=== PATIENT | female | born 1940 | race Two or more races ===

== ENCOUNTER → 2016-11-09 | Outpatient (CLI) | payer OTHER | END | disposition home or self-care (01) | LOC: HKI 14:55 | PROVIDERS: ATTEND Orthopaedic Surgery | DX: M17.11 Unilateral primary osteoarthritis, right knee (principal); M25.561 Pain in right knee | CPT/HCPCS: G0463 ==

== ENCOUNTER → 2016-12-17 | Outpatient (CLI) | payer OTHER ==
[~2016-12-17] MED LIST: AMLO-147 PO; LOSA50TA6 PO
--- NOTE | 2016-12-17 22:16 | RADRPT ---
PROCEDURE: Right knee radiographs. CLINICAL INDICATION: Right knee pain. TECHNIQUE: Four views. Weight bearing. Frontal, lateral, oblique, and patellar view. COMPARISON: No prior studies are available for comparison. FINDINGS: There is no fracture or dislocation. The soft tissues are normal. There are degenerative changes with osteophytes arising from all 3 joint compartment margins. There is marked subchondral sclerosis and deformity of the lateral compartment. There is associated valgu s deformity. There is no lytic or blastic lesion. There is no radiopaque foreign body. IMPRESSION: 1. Severe degenerative change with deformity and valgus malformation of the right knee. RPTAT: QQ .Matthew Shrestha MD, MD Date Time Electronically viewed and signed by .Matthew Shrestha MD, MD on 12/17/2016 22:15 .R/
--- NOTE | 2016-12-17 22:17 | RADRPT ---
PROCEDURE: Limited x-ray of both lower extremities. CLINICAL INDICATION: Bilateral leg pain. TECHNIQUE: Single frontal view of both lower extremities was obtained from the hips to the calves. COMPARISON: None. FINDINGS: The hips are not well seen due to dense overlying soft tissues. There are severe degenerative changes of the right knee with deformity and valgus malformation. The re are severe degenerative changes of the left knee with medial and lateral joint compartment narrow ing and deformity. IMPRESSION: 1. Severe degenerative changes of both knees with right worse than left. RPTAT: QQ .Matthew Shrestha MD, MD Date Time Electronically viewed and signed by .Matthew Shrestha MD, MD on 12/17/2016 22:17 .R/
== END | disposition home or self-care (01) ==
LOC: HKI 10:24
PROVIDERS: ATTEND Orthopaedic Surgery
DX: M25.561 Pain in right knee (principal); M25.562 Pain in left knee; M21.061 Valgus deformity, not elsewhere classified, right knee
CPT/HCPCS: 73564; 77073; Z7500; G0463

== ENCOUNTER 2016-12-20 13:36 | Inpatient (IN) | payer OTHER ==
[2016-12-20] VITALS (35 sets, daily range): BP systolic 94–159; BP diastolic 61–86; PULSE 62–79; RESP 10–23; Ht 170.2 cm; Wt 81.4 kg
[~2016-12-20] VITALS: Ht 170.2 cm; Wt 81.4 kg
[2016-12-20] MEDS: traMADol 50 MG TAB PO SCH ×2 (12:00→18:00)
[2016-12-20] MEDS ORDERED: BACITRACIN 50000 UNITS INJ ONE (13:50)
[2016-12-20] MEDS ORDERED: CEFAZOLIN 1 GM INJ ONE (13:54)
[2016-12-20] MEDS ORDERED: FENTAnyl 50 MCG/ML VIAL ONE (13:54)
[2016-12-20] MEDS ORDERED: GLYCOPYRROLATE 0.4 MG INJ ONE (13:54)
[2016-12-20] MEDS ORDERED: NEOSTIGMINE 3 MG/3 ML SYRINGE ONE (13:54)
[2016-12-20] MEDS ORDERED: PROPOFOL 20 ML ONE (13:54)
[2016-12-20] MEDS ORDERED: MIDAZOLAM 1 MG/ML 2 ML INJ ONE (13:54)
[2016-12-20] MEDS ORDERED: ONDANSETRON 4 MG INJ ONE (13:54)
[2016-12-20] MEDS ORDERED: ROCURONIUM 50 MG INJ ONE (13:54)
[2016-12-20] MEDS ORDERED: DEXAMETHASONE 4 MG/ML 1 ML INJ ONE (13:55)
[2016-12-20] MEDS ORDERED: TRANEXAMIC ACID 800 MG in SOD CHLORIDE 0.9% 92 ML IV ONE (14:00)
[2016-12-20] MEDS ORDERED: ONDANSETRON 4 MG IV X 1 DOSE IV ONE (14:00)
[2016-12-20] MEDS ORDERED: PREGABALIN 300 MG PO X1 PO ONE (14:00)
[2016-12-20] MEDS ORDERED: EXPAREL NOTE (BUPIVICAINE LIPOSOMAL) XX SCH (14:00)
[2016-12-20] MEDS ORDERED: oxyCODONE (CR) 10 MG TAB [oxyCONTIN] X1 DOSE PO ONE (14:00)
[2016-12-20] MEDS ORDERED: traMADOL 50 MG TAB X 1 DOSE PO ONE (14:00)
[2016-12-20] MEDS: LACTATED RINGER'S 1,000 ML IV SCH ×2 (14:00→23:22)
[2016-12-20] MEDS ORDERED: TRANEXAMIC ACID 800 MG in SOD CHLORIDE 0.9% 100 ML IVPB ONE (14:00)
[2016-12-20] MEDS ORDERED: PAIN COCKTAIL-CEFUROXIME IRR ONE ×7 (14:00)
[2016-12-20] MEDS ORDERED: CEFAZOLIN 2GM/50 ML (PMX) 50 ML X1 BEFORE INCISION IVPB ONE (14:00)
[2016-12-20] MEDS ORDERED: CELECOXIB 400 MG PO X1 DOSE PO ONE (14:00)
[2016-12-20] MEDS ORDERED: BUPIVACAINE LIPOSOME/PF 266 MG/20 ML VIAL INFIL ONE (14:00)
[2016-12-20] MEDS ORDERED: ETOMIDATE 20 MG INJ ONE (14:21)
[2016-12-20] MEDS ORDERED: PROPOFOL 100 ML ONE (14:21)
[2016-12-20] MEDS ORDERED: AMLO-147 PO (14:39)
[2016-12-20] MEDS ORDERED: LOSA50TA6 PO (14:39)
[2016-12-20] MEDS ORDERED: POLYMYXIN B 500000 UNIT INJ ONE (15:23)
[2016-12-20] MEDS ORDERED: VANCOMYCIN 1 GM INJ ONE (15:23)
[2016-12-20] MEDS ORDERED: SODIUM CL BACTERIOSTATIC 30 ML INJ ONE (15:23)
[2016-12-20] MEDS ORDERED: TOBRAMYCIN 1.2 GM POWDER ONE (15:23)
--- NOTE | 2016-12-20 15:34 | HPN ---
Date/Time of Note Date/Time of Note DATE: 12/20/16 TIME: 15:32 Interval H&P Admission Note Pt. seen H&P reviewed: No system changes No changes from H&P on 12/11/16 by KANCHAN Velasquez MD Dec 20, 2016 15:34
[2016-12-20] MEDS ORDERED: HYDROmorphONE (0.2 MG/ML) 10ML SYG IV PRN ×3 (17:00)
[2016-12-20] MEDS ORDERED: TRIMETHOBENZAMIDE 100 MG/ML VIAL IM PRN (17:00)
[2016-12-20] MEDS ORDERED: MEPERIDINE 25 MG INJ IV PRN (17:00)
[2016-12-20] MEDS ORDERED: MIDAZOLAM 1 MG/ML 2 ML INJ IV PRN (17:00)
[2016-12-20] MEDS ORDERED: ONDANSETRON 4 MG INJ IV PRN ×2 (17:00→19:30)
[2016-12-20] MEDS ORDERED: DIPHENHYDRAMINE 50 MG INJ IV PRN (17:00)
[2016-12-20] MEDS ORDERED: hydrALAzine 20 MG INJ IV PRN (17:00)
[2016-12-20] MEDS ORDERED: IPRATROPIUM (NEB) 0.5 MG/2.5 ML AMP HHN PRN (17:00)
[2016-12-20] MEDS ORDERED: OXYCODONE/ACETAMINOPHEN (5/325) TAB PO PRN ×2 (17:00)
[2016-12-20] MEDS ORDERED: LABETALOL HCL 20MG INJ IV PRN (17:00)
[2016-12-20] MEDS ORDERED: FENTAnyl 50 MCG/ML VIAL IV PRN ×3 (17:00)
[2016-12-20] MEDS ORDERED: EPHEDrine SULFATE 50 MG/5 ML SYG IV PRN (17:00)
[2016-12-20] MEDS ORDERED: ALBUTEROL 0.083% (NEB) 2.5 MG/3 ML AMP HHN PRN (17:00)
[2016-12-20] MEDS ORDERED: SUGAMMADEX SODIUM 200 MG/2 ML VIAL IV ONE (18:41)
--- NOTE | 2016-12-20 19:19 | PN ---
Date/Time of Note Date/Time of Note DATE: 12/20/16 TIME: 19:18 Assessment/Plan Assessment/Plan Assessment/Plan Stable in PACU, s/p right TKA -continue Ancef x 3 days until drain removed -pain meds as needed -ASA/SCDs for DVT prophylaxis -OOB with PT -check AM labs -monitor drain -d/c franks in AM XR of the right knee is pending at this time Subjective 24 Hr Interval Summary Stable in PACU. Denies pain. Moving all extremities. Exam/Review of Systems Vital Signs Vitals Vital Signs Date Time Temp Pulse Resp B/P Pulse Ox O2 Delivery O2 Flow Rate FiO2 12/20/16 20:53 66 17 127/79 94 Nasal Cannula 2.0 12/20/16 19:29 97.5 Intake and Output 12/19/16 12/19/16 12/20/16 15:00 23:00 07:00 Output Total 800 ml Balance -800 ml Exam Free Text/Dictation Hemovac: minimal Dressing dry Incision clean, dry, and intact without redness or drainage Thigh soft 5/5 Quadriceps, Tibialis Anterior, EHL, Gastroc, Soleus, Peroneals Normal sensation Palpable DT/PT, CR <2 sec No distal edema Results Result Diagram: 12/20/16193912/20/161939 ESTEBAN KOWALSKI PA-C Dec 20, 2016 19:19
--- NOTE | 2016-12-20 19:20 | OPR ---
Date/Time of Note Date/Time of Note DATE: 12/20/16 TIME: 19:15 Operative Report Procedure Description DATE: 12/20/2016 PREOPERATIVE DIAGNOSIS: Right knee osteoarthritis POSTOPERATIVE DIAGNOSIS: Right knee osteoarthritis OPERATION PERFORMED: Right total knee arthroplasty. SURGEON: Kanchan Quintanilla MD CONSULTING ANALYST: Enrique Jerez PA-C COMPONENTS USED: DePuy size 3 TC 3 femur with a neutral 5 bolt, 14 mm diameter by 75 mm fluted stem, size 2.5 MBT revision tibial tray, 37 mm metaphyseal sleeve, 14 mm diameter by 75 mm fluted stem, 12.5 mm polyethylene insert, 32 patellar button ANESTHESIA: Spinal plus general endotracheal intubation, plus periarticular injection ANESTHESIOLOGIST: Beny Zamarripa M.D. TOURNIQUET TIME: 84 minutes. ESTIMATED BLOOD LOSS: 50 cc INTRAVENOUS FLUIDS: 2,000 cc crystalloid SPECIMENS: Bone and soft tissue. DRAINS: Hemovac x1. COMPLICATIONS: None. DISPOSITION: The patient tolerated the procedure well and was taken to the recovery room in stable condition. INDICATIONS: The patient is a 76-year-old woman who has developed severe osteoarthritis of the right knee with a severe valgus deformity. She has failed nonsurgical means of treatment to address her pain including activity modifications, pain medications, and ambulatory assist devices. Despite these measures she has had worsening pain. I felt the patient would benefit from a total knee arthroplasty. The risks, benefits, and alternatives of the procedure were explained in detail to the patient. I explained the risks of the surgery to include but not be limited to, bleeding and possible need for blood transfusion; infection; pain; stiffness; neurovascular injury with possible numbness, weakness, and/or paralysis anywhere from the knee down to the toes; fracture; instability; dislocation; wear and/or loosening of the prosthesis and possible need for future revision; blood clots; pulmonary embolism; and anesthetic complications such as heart attack, stroke, GI bleed, pneumonia, and/or . Ample time was allowed for the patient to ask questions, all of which were addressed and answered. The patient understood the risks involved and wished to proceed. Informed consent was signed prior to the procedure. PROCEDURE: The patient's right knee was initialed with a marking pen in the preoperative area to identify the correct operative site. The patient was brought to the operating room and transferred from the hospital gurney to the operating table where a spinal anesthetic was administered. The patient was then anesthetized and intubated. A Amin catheter was placed. A timeout was performed to confirm that the right leg was the correct operative site. The patient was given 2 g of Ancef within one hour prior to the procedure. A tourniquet was placed on the operative proximal thigh. The operative knee and lower extremity were prepped and draped in the usual sterile fashion. The operative lower extremity was elevated and exsanguinated with an Esmarch tourniquet. The proximal thigh tourniquet was inflated to 300 mmHg. The knee was flexed. A midline incision was made and carried down through the subcutaneous tissue and fat with sharp dissection. Limited medial and lateral flaps were raised. A median parapatellar approach was performed. Synovial fluid was normal in color and consistency. It was swabbed for aerobic and anaerobic culture 2 per the patella was everted and the knee flexed. There were severe tricompartmental osteoarthritic changes noted, with a significant defect along the lateral tibial plateau and lateral femoral condyle. A lateral release was performed at the joint line to the midcoronal plane using the inverted crucifix technique. The ACL and PCL and remnants of the menisci were excised. The stepped drill was used to open up the femoral canal which was irrigated and sucked dry. The intramedullary guide xiang was passed up the femur, and the distal cutting block was pinned into place for a 5 degree valgus cut, taking 10 mm of bone off distally. The oscillating saw was used to make the cut. The tibia was subluxed anteriorly. The tibial cutoff jig was placed over the center of the talus distally and over the junction of the medial and middle third of the tibial tubercle proximally. The guide was pinned into place and the oscillating saw was used to make the cut. The tibia was sized. The extension gap was checked and accommodated a 12.5 mm spacer block with the knee in full extension. There was no varus or valgus instability. At this point, the femur was sized with the posterior referencing guide. Two holes were drilled in 3 degrees of external rotation. The two holes were in line with the transepicondylar axis, perpendicular to Stockton's line, and in line with the tibial cutoff jig brought up with the knee flexed 90 degrees and tensed with 2 lamina spreaders, suggesting the femoral rotation was correct. The four-in-one cutting block was pinned into place. The anterior and posterior cuts and chamfer cuts were made with the oscillating saw. The flexion gap was checked and accommodated the 12.5 mm spacer block at 90 degrees. There was no varus or valgus instability, suggesting the flexion and extension gaps were now equal. The central box was cut out on the femur. The femur was reamed up to 14 mm. The tibia was broached and then drilled and punched in proper rotation. Trial components were placed into position with a trial insert. The patella was cut down to 13 mm and sized. Three holes were drilled and the trial button placed in position. With all the trials now in place, the knee was taken through range of motion and came to full extension as evidenced by the fact that with the foot on my abdomen and axial loading, there was no tendency for the knee to flex. The knee was able to be flexed to 125 degrees with good patellar tracking with no lateral tilt or subluxation. At this point, I was satisfied with the overall range of motion, stability, and patellar tracking. Intraoperative C- arm images showed the components to be well aligned in good position on AP and lateral views. The trials were removed. The real components were opened. Two bags of cement were mixed, one with and one without premixed antibiotic. The knee was irrigated with antibiotic saline and sucked dry. Once the cement was in a doughy stage, the real components were cemented into place. The knee was held in full extension, and the patellar component was held with a patellar clamp. All excess cement was removed with curettes. As the cement was hardening, the synovial/capsular layer was infiltrated with a mixture of 150 mg of 0.5% Bupivacaine, 8 mg of Duramorph, 300 mcg of epinephrine, 30 mg of Toradol, 100 mcg of clonidine, 750 mg of cefuroxime and 86 mL of normal saline, followed by an injection of 266 mg of liposomal Bupivacaine. A Hemovac drain was placed in the deep portion of the wound and brought out the anterolateral thigh. Once the cement was completely hardened, the trial liner was removed, and the real insert was opened. The tourniquet was let down, and there was good hemostasis. The knee was then irrigated with a mixture of betadine/saline and then antibiotic saline with pulsatile lavage. The real insert was impacted into the tibia and reduced onto to the femur. The arthrotomy was closed with a few interrupted #1 Ethibond in a figure-of- eight fashion, and then closed in a watertight fashion with a running #2 Stratafix suture. Knee flexion was checked against gravity and came to 125 degrees. The subcutaneous layer was irrigated and closed with 2-0 Statafix, and then 3-0 Vicryl and then levi on the skin. The wound was covered with an occlusive dressing, and secured with cast padding and a bias dressing. The drain was secured with 3-0 nylon. The sponge and needle counts were correct at the end of the case. The patient was then awakened, extubated, and taken to the recovery room in stable condition. KANCHAN QUINTANILLA MD Dec 20, 2016 19:20
[2016-12-20] MEDS ORDERED: NA PHOSPHATE/BIPHOS 133 ML ENEMA PR PRN (19:30)
[2016-12-20] MEDS ORDERED: HYDROCODONE/APAP (7.5/325) TAB PO PRN (19:30)
[2016-12-20] MEDS ORDERED: ASPIRIN (EC) 325 MG TAB PO ONE (19:30)
[2016-12-20] MEDS ORDERED: NACL 0.9% 3 ML SYG IV SCH (19:30)
[2016-12-20] MEDS ORDERED: HYDROmorphONE 1 MG/ML SYG IV PRN (19:30)
[2016-12-20] MEDS ORDERED: BISACODYL 10 MG SUPP PR PRN (19:30)
[2016-12-20] MEDS ORDERED: MAGNESIUM HYDROXIDE 30ML CUP PO PRN (19:30)
[2016-12-20] MEDS ORDERED: DIPHENHYDRAMINE 25 MG CAP PO PRN (19:30)
[2016-12-20 19:52] LABS: HEMATOCRIT 40.9 % (37.0-47.0); HEMOGLOBIN 12.2 g/dl (12.0-16.0)
[2016-12-20 20:13] LABS: CALCIUM 8.2 mg/dl (8.4-10.2); CREATININE 0.89 mg/dl (0.44-1.00); POTASSIUM 4.4 mmol/L (3.5-5.1)
--- NOTE | 2016-12-20 20:26 | RADRPT ---
PROCEDURE: XR Knee. CLINICAL INDICATION: 76-year-old female. Postop. TECHNIQUE: Three views of the right knee. COMPARISON: December 17, 2016 FINDINGS: Status post hinge variety total knee replacement with cemented components. Prosthesis has the expec johanny postoperative appearance with normal alignment. There is a drain in the anterior joint. Anteri or skin levi. Mild soft tissue swelling is within normal limits in the immediate postoperative pe riod. There is a bandage in place. IMPRESSION: Status post total knee replacement with the expected immediate postoperative appearance. RPTAT: HCTS Physician Darleen Date Time Electronically viewed and signed by Physician Darleen on 12/20/2016 20:26 CS/
--- NOTE | 2016-12-20 20:29 | RADRPT ---
PROCEDURE: XR Knee. CLINICAL INDICATION: Postop. TECHNIQUE: Three views of the right knee. COMPARISON: None available FINDINGS: There is a total knee replacement with the expected immediate postoperative appearance. There is a drain in the anterior joint and there are anterior skin levi. Normal alignment. Soft tissue swe lling is within normal limits in the immediate postoperative period. There is a binder in place. IMPRESSION: Total knee replacement with the expected immediate postoperative appearance. RPTAT: HCTS Physician Darleen Date Time Electronically viewed and signed by Physician Darleen on 12/20/2016 20:29 CS/
[2016-12-20] MEDS: PREGABALIN 50 MG CAP PO SCH (21:00)
[2016-12-20] MEDS: DOCUSATE SODIUM 100 MG CAP PO SCH (21:00)
[2016-12-20] MEDS: CEFAZOLIN 2 GM/50 ML (PMX) 50 ML IVPB SCH (22:16)
[2016-12-20] MEDS ORDERED: TRANEXAMIC ACID 810 MG in SOD CHLORIDE 0.9% 100 ML IVPB ONE (22:30)
--- NOTE | 2016-12-20 23:09 | CONS ---
Date/Time of Note Date/Time of Note DATE: 12/20/16 TIME: 23:08 Assessment/Plan Assessment/Plan Chief Complaint/Hosp Course This is a 76-year-old female being admitted to the [facility] floor for: #1 right knee total arthroplasty: Patient is status post surgery. At the current time we will continue management as per orthopedic recommendations. Pain management as per orthopedics. Advance diet as per orthopedics with eventual change to diabetic diet. #2 hypertension: We will continue monitor blood pressure at this time and resume home medications. #3 diabetes mellitus: We will check a hemoglobin A1c. We will hold all home medications at this time. Will put patient on insulin sliding scale. #4 glaucoma: Stable at this time patient is not complaining of any eye pain. At the current time she is not on any home medications. She was advised to follow-up as an outpatient with customer support associate. #5 DVT and GI prophylaxis: As per orthopedic recommendations Further treatment strategy will be implemented as per the clinical course, thank you for this consultation we will follow with you. Problems: Consultation Date/Type/Reason Admit Date/Time Dec 20, 2016 at 13:36 Date of Consultation: Dec 20, 2016 Reason for Consultation medical management Hx of Present Illness Chief complaint: Right knee pain This is a 76-year-old female who is status post elective right knee arthroplasty secondary to right knee osteoarthritis. She is POD #0. She is currently in the PACU. Patient has been dealing with her right knee osteoarthritis for quite some time now according to her son was also with her at the bedside. At the current time she appears to have tolerated the seizure well. She is easily arousable though she is somewhat somnolent as she just recently got out of the operating room. She is not in any pain. Allergies: NKDA Medications: See MAR Const: As per HPI Eyes : No pain discharge or redness or change in visual acuity ENT: No pain, sore throat, congestion, congestion, dysphagia or discharge Respiratory: No shortness of breath, cough, sputum, wheezing, or pleuritic pain Cardiovascular: No chest pain, palpitation, PND, or edema GI : no change in appetite, abdominal pain, nausea, vomiting, diarrhea, constipation, or change in the color his stool Genitourinary: No dysuria, hematuria, flank pain , discharge or CVA tenderness Musculoskeletal: As per HPI Skin: No rash, bruising or hives Neuro: No headache, dizziness, syncope, seizure, focal weakness Endocrine: No polyuria, polydipsia, temperature intolerance Psych: No hallucination, depression, anxiety or suicidal ideation Past Medical History HTN, DM, glaucoma, right knee osteoarthritis Past Surgical History s/p Right Knee replacement POD#0 Family History Significant Family History: hypertension Social History Alcohol Use: none Smoking Status: Never smoker Drug Use: none Exam/Review of Systems Vital Signs Vitals Vital Signs Date Time Temp Pulse Resp B/P Pulse Ox O2 Delivery O2 Flow Rate FiO2 12/20/16 21:53 62 18 108/71 96 Nasal Cannula 2.0 12/20/16 19:29 97.5 Intake and Output 12/19/16 12/19/16 12/20/16 15:00 23:00 07:00 Output Total 800 ml Balance -800 ml Exam General: Patient is lying in bed in no acute distress, she is somnolent but easily arousable. HEENT: Atraumatic, normocephalic. The pupils are equal, round and reactive. Extraocular motor are intact Neck: Supple with full range of motion. No rigidity or meningismus Chest: Nontender Lungs: Clear to auscultation bilaterally no crackles rales or wheezing Heart: Normal S1-S2, Regular rhythm and rate. No murmur, S3, or S4 Abdomen: Soft , nontender, nondistended , bowel sounds are present. No guarding no rebound tenderness , No masses or organomegaly. No costovertebral temporal angle mass Extremities: Normal to inspection, no edema no cyanosis, right knee exam was deferred secondary to her being postop. Right knee dressing clean dry and intact Neurologic: Normal mental status, speech normal, somnolent but easily arousable , cranial nerves II through XII are intact, motor and sensory are intact, no focal weakness Additional Comments PROCEDURE: XR Knee. CLINICAL INDICATION: 76-year-old female. Postop. TECHNIQUE: Three views of the right knee. COMPARISON: December 17, 2016 FINDINGS: Status post hinge variety total knee replacement with cemented components. Prosthesis has the expected postoperative appearance with normal alignment. There is a drain in the anterior joint. Anterior skin levi. Mild soft tissue swelling is within normal limits in the immediate postoperative period. There is a bandage in place. IMPRESSION: Status post total knee replacement with the expected immediate postoperative appearance. RPTAT: HCTS Physician Darleen Date Time Electronically viewed and signed by Ayesha Mccall Physician on 12/20/2016 20: 26 CS/ CC: ESTEBAN KOWALSKI PA-C Results Result Diagram: 12/20/16193912/20/161939 Results 24 hrs Laboratory Tests Test 12/20/16 19:40 12/20/16 20:00 Hemoglobin 12.2 Hematocrit 40.9 Sodium Level 142 Potassium Level 4.4 Chloride Level 105 Carbon Dioxide Level 25 Anion Gap 16 Blood Urea Nitrogen 20 Creatinine 0.89 Glucose Level 178 Calcium Level 8.2 L Bedside Glucose 160 Medications Medications Current Medications Lactated Ringer's (Lr) 1,000 ml @ 100 mls/hr Q10H IV ; Start 12/20/16 at 14:00 Miscellaneous Information 1 ea NOTE XX ; Start 12/20/16 at 14:00; Stop 12/24/16 at 13:59 Amlodipine Besylate (Norvasc) 10 mg DAILY PO ; Start 12/21/16 at 09:00 Losartan Potassium 50 mg 50 mg DAILY PO ; Start 12/21/16 at 09:00 Lactated Ringer's (Lr) 1,000 ml @ 125 mls/hr Q8H IV ; Start 12/20/16 at 19:13 Tramadol HCl (Ultram) 50 mg Q6 PO ; Start 12/20/16 at 12:00; Stop 12/23/16 at 11 :59 Hydromorphone HCl 1 mg 1 mg Q3H PRN IV PAIN LEVEL 8-10; Start 12/20/16 at 19:30 Cefazolin Sodium/ Dextrose (Ancef 2 Gm/50 ml (Pmx)) 50 ml @ 100 mls/hr Q8H IVPB Last administered on 12/20/16t 22:16; Admin Dose 100 MLS/HR; Start at 21:30; Stop 12/23/16 at 13:59 Ondansetron HCl (Zofran Inj) 4 mg Q6H PRN IV NAUSEA AND/OR VOMITING; Start 02/26 at 19:30 Bisacodyl (Dulcolax Supp) 10 mg Q12H PRN [place] CONSTIPATION; Start 12/20/16 at 19: 30 Magnesium Hydroxide (Milk Of Mag) 30 ml BID PRN PO CONSTIPATION; Start at 19:30 Sodium Biphosphate/ Sodium Phosphate (Fleet Enema) 133 ml DAILY PRN [place] CONSTIPATION; Start 12/20/16 at 19:30 Docusate Sodium (Colace) 100 mg BID PO ; Start 12/20/16 at 21:00 Diphenhydramine HCl (Benadryl) 25 mg Q6H PRN PO PRURITUS; Start 12/20/16 at 19: 30 Acetaminophen/ Hydrocodone Bitart (Kimball (7.5-325)) 1 tab Q4H PRN PO PAIN LEVEL 1-3; Start 12/20/16 at 19:30 Acetaminophen/ Hydrocodone Bitart (Kimball (7.5-325)) 2 tab Q4H PRN PO PAIN LEVEL 4-7; Start 12/20/16 at 19:30 Aspirin (Ecotrin) 325 mg BID PO ; Start 12/21/16 at 09:00 Pantoprazole (Protonix Tab) 40 mg BID@,18 PO ; Start 12/21/16 at 06:00 Pregabalin (Lyrica) 50 mg BID PO ; Start 12/20/16 at 21:00 SIA JOHANSEN Dec 20, 2016 23:09
[2016-12-20] MEDS ORDERED: GLUCAGON 1 MG INJ IM PRN (23:15)
[2016-12-20] MEDS ORDERED: GLUCOSE GEL 15 GRAM TUBE BUCCAL PRN (23:15)
[2016-12-20] MEDS ORDERED: GLUCOSE GEL 15 GRAM TUBE PO PRN ×2 (23:15)
[2016-12-20] MEDS ORDERED: DEXTROSE 50% 50 ML SYRINGE IV PRN ×2 (23:15)
[2016-12-21 00:30] VITALS: BP 138/95; RESP 20
[2016-12-21] MEDS ORDERED: TRANEXAMIC ACID 810 MG in SOD CHLORIDE 0.9% 100 ML IVPB ONE (01:30)
[2016-12-21] MEDS: ACCU-CHEK XX SCH (02:00)
[2016-12-21] MEDS ORDERED: ACCU-CHEK XX SCH (02:00)
[2016-12-21] MEDS: LACTATED RINGER'S 1,000 ML IV SCH ×8 (03:13→21:10)
[2016-12-21] MEDS: CEFAZOLIN 2 GM/50 ML (PMX) 50 ML IVPB SCH ×3 (05:53→21:10)
[2016-12-21] MEDS: PANTOPRAZOLE (EC) 40 MG TAB PO SCH ×2 (06:00→17:37)
[2016-12-21] MEDS: traMADol 50 MG TAB PO SCH ×4 (06:00→18:46)
[2016-12-21 06:03] LABS: HEMATOCRIT 41.2 % (37.0-47.0); HEMOGLOBIN 12.4 g/dl (12.0-16.0)
[2016-12-21 06:22] LABS: CALCIUM 8.4 mg/dl (8.4-10.2); CREATININE 0.87 mg/dl (0.44-1.00); POTASSIUM 5.8 mmol/L (3.5-5.1)
[2016-12-21] MEDS: INSULIN ASPART [NOVOLOG] 3 ML PEN SC SCH ×4 (07:50→21:00)
--- NOTE | 2016-12-21 08:00 | PDOCDIS ---
Discharge Instructions DIAGNOSIS Discharge Diagnosis s/p right total knee arthroplasty CONDITION Patient Condition: Good HOME CARE INSTRUCTIONS: Diet Instructions: Regular ACTIVITY: Activity Restrictions: Slowly Increase Activity Rest between Activity Avoid heavy lifting Do not operate Machinery Do not operate Power Tool Avoid Heavy Housework Keep Limb Elevated Weight Bearing Bathing Restrictions: Shower FOLLOW UP/APPOINTMENTS Follow-up Plan follow up in the office on 12/31/16 ESTEBAN KOWALSKI PA-C Dec 21, 2016 08:00
[2016-12-21] MEDS ORDERED: ASPI325T32 PO (08:01)
[2016-12-21] MEDS ORDERED: HYDR-3605 PO (08:01)
[2016-12-21] MEDS ORDERED: PANT40TA4 PO (08:01)
[2016-12-21] MEDS ORDERED: TRAM50TA2 PO (08:01)
[2016-12-21 08:35] VITALS: BP 113/57; RESP 18
[2016-12-21] MEDS: DOCUSATE SODIUM 100 MG CAP PO SCH ×2 (08:41→21:05)
[2016-12-21] MEDS: LOSARTAN 50 MG TAB PO SCH (08:42)
[2016-12-21] MEDS: ASPIRIN (EC) 325 MG TAB PO SCH ×2 (08:42→21:04)
[2016-12-21] MEDS: AMLODIPINE 10 MG TAB PO SCH (08:42)
[2016-12-21] MEDS: PREGABALIN 50 MG CAP PO SCH ×2 (08:42→21:05)
--- NOTE | 2016-12-21 10:14 | PN ---
Date/Time of Note Date/Time of Note DATE: 12/21/16 TIME: 10:12 Assessment/Plan Lines/Catheters Amin in Place (from Nrsg): Yes Assessment/Plan Assessment/Plan Stable POD #1, s/p right TKA -continue Ancef until final culture results -pain meds as needed -ASA/SCDs -OOB with PT -drain removed -check AM labs -d/c planning. Will plan to go home upon discharge Subjective 24 Hr Interval Summary No acute overnight events. Denies pain . Did not start PT yesterday. Cultures show no growth x 1 day. VSS, afebrile. Would like to go home upon discharge. Exam/Review of Systems Vital Signs Vitals Vital Signs Date Time Temp Pulse Resp B/P Pulse Ox O2 Delivery O2 Flow Rate FiO2 12/21/16 08:35 97.8 73 18 113/57 98 12/21/16 01:51 Nasal Cannula 2.0 Intake and Output 12/20/16 12/20/16 12/21/16 14:59 22:59 06:59 Intake Total 2500 ml 808.1 ml Output Total 150 ml 1000 ml Balance 2350 ml -191.9 ml Exam Free Text/Dictation Hemovac: 150cc Dressing dry Incision clean, dry, and intact without redness or drainage Thigh soft 5/5 Quadriceps, Tibialis Anterior, EHL, Gastroc, Soleus, Peroneals Normal sensation Palpable DT/PT, CR <2 sec No distal edema Results Result Diagram: 12/21/16 0435 12/21/16 0925 ESTEBAN KOWALSKI PA-C Dec 21, 2016 10:13
[2016-12-21] MEDS ORDERED: NA POLYST SULFON 15 GM/60 ML BTL PO ONE (12:00)
[2016-12-21 13:22] LABS: ADD UMIC YES; UR ASCORBIC ACID NEGATIVE (NEGATIVE); UR BILIRUBIN (Dip) NEGATIVE (NEGATIVE); UR BLOOD (Dip) 3+ mg/dL (NEGATIVE); UR CLARITY CLEAR (CLEAR); UR COLOR YELLOW (YELLOW); UR GLUCOSE (Dip) NEGATIVE (NEGATIVE); UR KETONES (Dip) NEGATIVE (NEGATIVE); UR LEUKOCYTE ESTERASE (Dip) 1+ Leu/ul (NEGATIVE); UR NITRITE (Dip) NEGATIVE (NEGATIVE); UR RBC 152 /HPF (0-5); UR SPECIFIC GRAVITY (Dip) 1.027 (1.003-1.030); UR TOTAL PROTEIN (Dip) NEGATIVE (NEGATIVE); UR UROBILINOGEN (Dip) NEGATIVE (NEGATIVE)
[2016-12-21 14:00] VITALS: BP 113/62; RESP 18
[2016-12-21] MEDS: HYDROCODONE/APAP (7.5/325) TAB PO PRN ×2 (16:37→21:10)
--- NOTE | 2016-12-21 17:52 | PN ---
Date/Time of Note Date/Time of Note DATE: 12/21/16 TIME: 17:50 Assessment/Plan VTE Prophylaxis VTE Prophylaxis Intervention: other (Per Orthopedic Surgery) Lines/Catheters IV Catheter Type (from Nrs): Peripheral IV Urinary Cath still in place: Yes Reason Cath still needed: other (indicate) Assessment/Plan Chief Complaint/Hosp Course 1. Right knee osteoarthritis. Status post right total knee arthroplasty on 02/2017. Continue management as per orthopedic surgery. 2. Essential hypertension. Continue antihypertensives. 3. Type 2 diabetes mellitus. Hemoglobin A1c 6.6. Continue sliding scale insulin. Sugars well controlled. 4. Hyperkalemia. Etiology unclear. Will hold the patient ARB. Will give a single dose of potassium exchange resin. 5. Fluids, electrolytes, and nutrition. Carbohydrate controlled diet. 6. DVT prophylaxis. As per orthopedic surgery. 7. Plan. Hold ARB. Give a single dose of Kayexalate. We will continue to follow the patient along with you. Thank you for the consult. Case discussed with Dr. Ford. Problems: Subjective 24 Hr Interval Summary Free Text/Dictation Right knee pain well controlled. Exam/Review of Systems Vital Signs Vitals Vital Signs Date Time Temp Pulse Resp B/P Pulse Ox O2 Delivery O2 Flow Rate FiO2 12/21/16 14:00 97.8 68 18 113/62 90 12/21/16 01:51 Nasal Cannula 2.0 Intake and Output 12/20/16 12/20/16 12/21/16 15:00 23:00 07:00 Intake Total 2500 ml 808.1 ml Output Total 150 ml 1000 ml Balance 2350 ml -191.9 ml Exam General: Adequately build 76 year-old female lying in bed in no apparent distress. HEENT: Normocephalic, atraumatic. Eyes: Anicteric sclerae, conjunctivae clear. ENT: Nasal septum midline, oral mucosa moist. Neck supple, no JVD noticed. Respiratory: Bilaterally clear breath sounds. No use of accessory muscles of respiration. No adventitious breath sounds. Cardiovascular: S1, S2 heard. No murmurs or gallops. Abdomen: Soft, nontender, and nondistended. Bowel sounds positive in all 4 quadrants. Genitourinary: Deferred. Extremities: No cyanosis, no clubbing. Right knee surgical dressing. Peripheral pulses palpable. Neurologic: Cranial nerves II through XII grossly intact. The patient is awake, alert, and oriented. Skin: Normal skin turgor. No skin rashes. Results Result Diagram: 12/21/16 0435 12/21/16 0925 Results 24 hrs Laboratory Tests Test 12/20/16 19:40 12/20/16 20:00 12/21/16 04:35 12/21/16 08:37 Hemoglobin 12.2 12.4 Hematocrit 40.9 41.2 Sodium Level 142 Potassium Level 4.4 Chloride Level 105 Carbon Dioxide Level 25 Anion Gap 16 Blood Urea Nitrogen 20 Creatinine 0.89 Glucose Level 178 Calcium Level 8.2 L Bedside Glucose 160 97 Hemoglobin A1c 6.6 H Test 12/21/16 09:25 12/21/16 09:50 12/21/16 12:03 12/21/16 17:20 Sodium Level 143 Potassium Level 5.8 H Chloride Level 103 Carbon Dioxide Level 27 Anion Gap 19 H Blood Urea Nitrogen 21 H Creatinine 0.87 Glucose Level 134 # Calcium Level 8.4 Urine Color YELLOW Urine Clarity CLEAR Urine pH 5.0 Urine Specific [place] 1.027 Urine Ketones NEGATIVE Urine Nitrite NEGATIVE Urine Bilirubin NEGATIVE Urine Urobilinogen NEGATIVE Urine Leukocyte Esterase 1+ H Urine Microscopic RBC 152 H Urine Microscopic WBC 6 H Urine Hemoglobin 3+ H Urine Glucose NEGATIVE Urine Total Protein NEGATIVE Bedside Glucose 125 123 Medications Medications Current Medications Lactated Ringer's (Lr) 1,000 ml @ 100 mls/hr Q10H IV ; Start 12/20/16 at 14:00 Miscellaneous Information 1 ea NOTE XX ; Start 12/20/16 at 14:00; Stop 12/24/16 at 13:59 Amlodipine Besylate (Norvasc) 10 mg DAILY PO Last administered on 12/21/16 08: 42; Admin Dose 10 MG; Start 12/21/16 at 09:00 Losartan Potassium 50 mg 50 mg DAILY PO Last administered on 12/21/16 08:42; Admin Dose 50 MG; Start 12/21/16 at 09:00; Status Future Hold Lactated Ringer's (Lr) 1,000 ml @ 125 mls/hr Q8H IV Last administered on 09:22; Admin Dose 125 MLS/HR; Start 12/20/16 at 19:13 Tramadol HCl (Ultram) 50 mg Q6 PO Last administered on 12/21/16 12:21; Admin Dose 50 MG; Start 12/20/16 at 12:00; Stop 12/23/16 at 11:59 Hydromorphone HCl 1 mg 1 mg Q3H PRN IV PAIN LEVEL 8-10; Start 12/20/16 at 19:30 Cefazolin Sodium/ Dextrose (Ancef 2 Gm/50 ml (Pmx)) 50 ml @ 100 mls/hr Q8H IVPB Last administered on 12/21/16 13:18; Admin Dose 100 MLS/HR; Start at 21:30; Stop 12/23/16 at 13:59 Ondansetron HCl (Zofran Inj) 4 mg Q6H PRN IV NAUSEA AND/OR VOMITING; Start 02/26 at 19:30 Bisacodyl (Dulcolax Supp) 10 mg Q12H PRN [place] CONSTIPATION; Start 12/20/16 at 19: 30 Magnesium Hydroxide (Milk Of Mag) 30 ml BID PRN PO CONSTIPATION; Start at 19:30 Sodium Biphosphate/ Sodium Phosphate (Fleet Enema) 133 ml DAILY PRN [place] CONSTIPATION; Start 12/20/16 at 19:30 Docusate Sodium (Colace) 100 mg BID PO Last administered on 12/21/16 08:41; Admin Dose 100 MG; Start 12/20/16 at 21:00 Diphenhydramine HCl (Benadryl) 25 mg Q6H PRN PO PRURITUS; Start 12/20/16 at 19: 30 Acetaminophen/ Hydrocodone Bitart ([place] (7.5-325)) 1 tab Q4H PRN PO PAIN LEVEL 1-3 Last administered on 12/21/16 16:37; Admin Dose 1 TAB; Start at 19:30 Acetaminophen/ Hydrocodone Bitart ([place] (7.5-325)) 2 tab Q4H PRN PO PAIN LEVEL 4-7; Start 12/20/16 at 19:30 Aspirin (Ecotrin) 325 mg BID PO Last administered on 12/21/16 08:42; Admin Dose 325 MG; Start 12/21/16 at 09:00 Pantoprazole (Protonix Tab) 40 mg BID@06,18 PO Last administered on 12/21/16 17:37; Admin Dose 40 MG; Start 12/21/16 at 06:00 Pregabalin (Lyrica) 50 mg BID PO Last administered on 12/21/16t 08:42; Admin Dose 50 MG; Start 12/20/16 at 21:00 Diagnostic Test (Pha) (Accu-Chek) 1 ea 02 XX ; Start 12/21/16 at 02:00 Miscellaneous Information 1 ea NOTE XX ; Start 12/20/16 at 23:15 Glucose (Glutose) 15 gm Q15M PRN PO DECREASED GLUCOSE; Start 12/20/16 at 23:15 Glucose (Glutose) 22.5 gm Q15M PRN PO DECREASED GLUCOSE; Start 12/20/16 at 23: 15 Dextrose (D50w Syringe) 25 ml Q15M PRN IV DECREASED GLUCOSE; Start 12/20/16 at 23:15 Dextrose (D50w Syringe) 50 ml Q15M PRN IV DECREASED GLUCOSE; Start 12/20/16 at 23:15 Glucagon (Glucagen) 1 mg Q15M PRN IM DECREASED GLUCOSE; Start 12/20/16 at 23:15 Glucose (Glutose) 15 gm Q15M PRN BUCCAL DECREASED GLUCOSE; Start 12/20/16 at 23 :15 BRYSON BAR NP Dec 21, 2016 17:52
[2016-12-21 19:20] VITALS: BP 111/53; RESP 20
[2016-12-22] MEDS: ACCU-CHEK XX SCH (00:17)
[2016-12-22 02:34] VITALS: BP 96/52; PULSE 86; RESP 17
[2016-12-22] MEDS: CEFAZOLIN 2 GM/50 ML (PMX) 50 ML IVPB SCH ×3 (05:51→20:50)
[2016-12-22] MEDS: LACTATED RINGER'S 1,000 ML IV SCH ×4 (05:52→19:13)
[2016-12-22] MEDS: traMADol 50 MG TAB PO SCH ×4 (05:52→18:30)
[2016-12-22] MEDS: PANTOPRAZOLE (EC) 40 MG TAB PO SCH ×2 (05:52→18:29)
[2016-12-22 05:55] LABS: HEMATOCRIT 33.8 % (37.0-47.0); HEMOGLOBIN 10.5 g/dl (12.0-16.0)
[2016-12-22 06:07] LABS: POTASSIUM 4.8 mmol/L (3.5-5.1)
[2016-12-22 07:00] VITALS: BP 107/58; RESP 18
[2016-12-22] MEDS: INSULIN ASPART [NOVOLOG] 3 ML PEN SC SCH ×4 (07:50→21:00)
--- NOTE | 2016-12-22 08:59 | PN ---
Date/Time of Note Date/Time of Note DATE: 12/22/16 TIME: 08:56 Assessment/Plan VTE Prophylaxis VTE Prophylaxis Intervention: other (Per orthopedic surgery.) Lines/Catheters IV Catheter Type (from Nrs): Peripheral IV Urinary Cath still in place: Yes Reason Cath still needed: other (indicate) Assessment/Plan Chief Complaint/Hosp Course 1. Right knee osteoarthritis. Status post right total knee arthroplasty on 02/2017. Continue management as per orthopedic surgery. 2. Essential hypertension. Continue antihypertensives. 3. Type 2 diabetes mellitus. Hemoglobin A1c 6.6. Continue sliding scale insulin. Sugars well controlled. 4. Hyperkalemia. Resolved a single dose of potassium exchange resin. ARB can be resumed as appropriate for hypertension. 5. Fluids, electrolytes, and nutrition. Carbohydrate controlled diet. 6. DVT prophylaxis. As per orthopedic surgery. 7. Plan. Resume ARB. Monitor potassium levels closely. We will continue to follow the patient along with you. Thank you for the consult. Case discussed with Dr. Ford. Problems: Subjective 24 Hr Interval Summary Free Text/Dictation Had a low-grade fever last night. Exam/Review of Systems Vital Signs Vitals Vital Signs Date Time Temp Pulse Resp B/P Pulse Ox O2 Delivery O2 Flow Rate FiO2 12/22/16 07:00 98.9 78 18 107/58 95 12/22/16 02:34 Nasal Cannula 12/21/16 01:51 2.0 Intake and Output 12/21/16 12/21/16 12/22/16 15:00 23:00 07:00 Intake Total 100 ml 2410 ml 2200 ml Output Total 550 ml 1000 ml Balance -450 ml 2410 ml 1200 ml Exam General: Adequately build 76 year-old female lying in bed in no apparent distress. HEENT: Normocephalic, atraumatic. Eyes: Anicteric sclerae, conjunctivae clear. ENT: Nasal septum midline, oral mucosa moist. Neck supple, no JVD noticed. Respiratory: Bilaterally clear breath sounds. No use of accessory muscles of respiration. No adventitious breath sounds. Cardiovascular: S1, S2 heard. No murmurs or gallops. Abdomen: Soft, nontender, and nondistended. Bowel sounds positive in all 4 quadrants. Genitourinary: Deferred. Extremities: No cyanosis, no clubbing. Right knee surgical dressing. Peripheral pulses palpable. Neurologic: Cranial nerves II through XII grossly intact. The patient is awake, alert, and oriented. Skin: Normal skin turgor. No skin rashes. Results Result Diagram: 12/22/16 0436 12/22/16 0436 Results 24 hrs Laboratory Tests Test 12/21/16 09:25 12/21/16 09:50 12/21/16 12:03 12/21/16 17:20 Sodium Level 143 Potassium Level 5.8 H Chloride Level 103 Carbon Dioxide Level 27 Anion Gap 19 H Blood Urea Nitrogen 21 H Creatinine 0.87 Glucose Level 134 # Calcium Level 8.4 Urine Color YELLOW Urine Clarity CLEAR Urine pH 5.0 Urine Specific [place] 1.027 Urine Ketones NEGATIVE Urine Nitrite NEGATIVE Urine Bilirubin NEGATIVE Urine Urobilinogen NEGATIVE Urine Leukocyte Esterase 1+ H Urine Microscopic RBC 152 H Urine Microscopic WBC 6 H Urine Hemoglobin 3+ H Urine Glucose NEGATIVE Urine Total Protein NEGATIVE Bedside Glucose 125 123 Test 12/21/16 18:45 12/21/16 21:11 12/22/16 04:36 12/22/16 08:40 Potassium Level 4.6 4.8 Bedside Glucose 129 133 Hemoglobin 10.5 L Hematocrit 33.8 L Sodium Level 137 Chloride Level 98 Carbon Dioxide Level 30 Anion Gap 14 Blood Urea Nitrogen 23 H Creatinine 1.00 Glucose Level 106 Calcium Level 8.0 L Magnesium Level 1.9 Medications Medications Current Medications Lactated Ringer's (Lr) 1,000 ml @ 100 mls/hr Q10H IV ; Start 12/20/16 at 14:00 Miscellaneous Information 1 ea NOTE XX ; Start 12/20/16 at 14:00; Stop 12/24/16 at 13:59 Amlodipine Besylate (Norvasc) 10 mg DAILY PO Last administered on 12/21/16 08: 42; Admin Dose 10 MG; Start 12/21/16 at 09:00 Losartan Potassium 50 mg 50 mg DAILY PO Last administered on 12/21/16 08:42; Admin Dose 50 MG; Start 12/21/16 at 09:00; Status Future Hold Lactated Ringer's (Lr) 1,000 ml @ 125 mls/hr Q8H IV Last administered on 05:52; Admin Dose 125 MLS/HR; Start 12/20/16 at 19:13 Tramadol HCl (Ultram) 50 mg Q6 PO Last administered on 12/22/16 05:52; Admin Dose 50 MG; Start 12/20/16 at 12:00; Stop 12/23/16 at 11:59 Hydromorphone HCl 1 mg 1 mg Q3H PRN IV PAIN LEVEL 8-10; Start 12/20/16 at 19:30 Cefazolin Sodium/ Dextrose (Ancef 2 Gm/50 ml (Pmx)) 50 ml @ 100 mls/hr Q8H IVPB Last administered on 12/22/16 05:51; Admin Dose 100 MLS/HR; Start at 21:30; Stop 12/23/16 at 13:59 Ondansetron HCl (Zofran Inj) 4 mg Q6H PRN IV NAUSEA AND/OR VOMITING; Start 02/26 at 19:30 Bisacodyl (Dulcolax Supp) 10 mg Q12H PRN [place] CONSTIPATION; Start 12/20/16 at 19: 30 Magnesium Hydroxide (Milk Of Mag) 30 ml BID PRN PO CONSTIPATION; Start at 19:30 Sodium Biphosphate/ Sodium Phosphate (Fleet Enema) 133 ml DAILY PRN [place] CONSTIPATION; Start 12/20/16 at 19:30 Docusate Sodium (Colace) 100 mg BID PO Last administered on 12/21/16 21:05; Admin Dose 100 MG; Start 12/20/16 at 21:00 Diphenhydramine HCl (Benadryl) 25 mg Q6H PRN PO PRURITUS; Start 12/20/16 at 19: 30 Acetaminophen/ Hydrocodone Bitart ([place] (7.5-325)) 1 tab Q4H PRN PO PAIN LEVEL 1-3 Last administered on 12/21/16 21:10; Admin Dose 1 TAB; Start at 19:30 Acetaminophen/ Hydrocodone Bitart ([place] (7.5-325)) 2 tab Q4H PRN PO PAIN LEVEL 4-7; Start 12/20/16 at 19:30 Aspirin (Ecotrin) 325 mg BID PO Last administered on 12/21/16 21:04; Admin Dose 325 MG; Start 12/21/16 at 09:00 Pantoprazole (Protonix Tab) 40 mg BID@06,18 PO Last administered on 12/22/16 05:52; Admin Dose 40 MG; Start 12/21/16 at 06:00 Pregabalin (Lyrica) 50 mg BID PO Last administered on 12/21/16t 21:05; Admin Dose 50 MG; Start 12/20/16 at 21:00 Diagnostic Test (Pha) (Accu-Chek) 1 ea 02 XX ; Start 12/21/16 at 02:00 Miscellaneous Information 1 ea NOTE XX ; Start 12/20/16 at 23:15 Glucose (Glutose) 15 gm Q15M PRN PO DECREASED GLUCOSE; Start 12/20/16 at 23:15 Glucose (Glutose) 22.5 gm Q15M PRN PO DECREASED GLUCOSE; Start 12/20/16 at 23: 15 Dextrose (D50w Syringe) 25 ml Q15M PRN IV DECREASED GLUCOSE; Start 12/20/16 at 23:15 Dextrose (D50w Syringe) 50 ml Q15M PRN IV DECREASED GLUCOSE; Start 12/20/16 at 23:15 Glucagon (Glucagen) 1 mg Q15M PRN IM DECREASED GLUCOSE; Start 12/20/16 at 23:15 Glucose (Glutose) 15 gm Q15M PRN BUCCAL DECREASED GLUCOSE; Start 12/20/16 at 23 :15 BRYSON BAR NP Dec 22, 2016 08:59
[2016-12-22] MEDS: ASPIRIN (EC) 325 MG TAB PO SCH ×2 (09:07→20:49)
[2016-12-22] MEDS: DOCUSATE SODIUM 100 MG CAP PO SCH ×2 (09:07→20:49)
[2016-12-22] MEDS: PREGABALIN 50 MG CAP PO SCH ×2 (09:07→22:12)
[2016-12-22] MEDS: AMLODIPINE 10 MG TAB PO SCH (09:07)
--- NOTE | 2016-12-22 11:29 | PN ---
Date/Time of Note Date/Time of Note DATE: 12/22/16 TIME: 11:27 Assessment/Plan Lines/Catheters IV Catheter Type (from Nrsg): Peripheral IV Amin in Place (from Nrsg): Yes Assessment/Plan Assessment/Plan POD # 2. Stable. -Pain meds -OOB with PT -ASA/SCDs -Plan for d/c to home tomorrow Subjective 24 Hr Interval Summary Having some more pain today. [place] helping. Family at bedside. Exam/Review of Systems Vital Signs Vitals Vital Signs Date Time Temp Pulse Resp B/P Pulse Ox O2 Delivery O2 Flow Rate FiO2 12/22/16 07:00 98.9 78 18 107/58 95 12/22/16 02:34 Nasal Cannula 12/21/16 01:51 2.0 Intake and Output 12/21/16 12/21/16 12/22/16 15:00 23:00 07:00 Intake Total 100 ml 2410 ml 2200 ml Output Total 550 ml 1000 ml Balance -450 ml 2410 ml 1200 ml Exam Free Text/Dictation Dressing dry Incision clean, dry, and intact without redness or drainage 5/5 Tibialis Anterior, EHL, Gastroc Soleus, Peroneals Normal sensation Palpable DP/PT, CR < 2 Sec No distal edema Results Result Diagram: 12/22/16 0436 12/22/16 0436 KANCHAN QUINTANILLA MD Dec 22, 2016 11:29
[2016-12-22 14:00] VITALS: BP 140/66; RESP 20
[2016-12-22 20:03] VITALS: BP 122/58; RESP 18
[2016-12-23] MEDS: LACTATED RINGER'S 1,000 ML IV SCH ×4 (02:00→12:00)
[2016-12-23] MEDS: ACCU-CHEK XX SCH (02:00)
[2016-12-23] MEDS: traMADol 50 MG TAB PO SCH ×2 (02:09→09:03)
[2016-12-23 02:37] VITALS: BP 123/58; RESP 18
[2016-12-23 05:11] LABS: HEMATOCRIT 34.2 % (37.0-47.0); HEMOGLOBIN 10.6 g/dl (12.0-16.0)
[2016-12-23 05:25] LABS: CALCIUM 8.3 mg/dl (8.4-10.2); CREATININE 0.86 mg/dl (0.44-1.00); POTASSIUM 4.2 mmol/L (3.5-5.1)
[2016-12-23] MEDS: PANTOPRAZOLE (EC) 40 MG TAB PO SCH (05:48)
[2016-12-23] MEDS: CEFAZOLIN 2 GM/50 ML (PMX) 50 ML IVPB SCH ×2 (05:48→13:30)
[2016-12-23] MEDS: INSULIN ASPART [NOVOLOG] 3 ML PEN SC SCH ×2 (07:50→12:30)
[2016-12-23 08:03] VITALS: BP 145/64; RESP 22
--- NOTE | 2016-12-23 08:31 | PN ---
Date/Time of Note Date/Time of Note DATE: 12/23/16 TIME: 08:27 Assessment/Plan VTE Prophylaxis VTE Prophylaxis Intervention: other (As per orthopedic surgery.) Lines/Catheters IV Catheter Type (from [facility]): Peripheral IV Urinary Cath still in place: No Assessment/Plan Chief Complaint/Hosp Course 1. Right knee osteoarthritis. Status post right total knee arthroplasty on 02/2017. Continue management as per orthopedic surgery. 2. Essential hypertension. Continue antihypertensives. 3. Type 2 diabetes mellitus. Hemoglobin A1c 6.6. Continue sliding scale insulin. Sugars well controlled. 4. Hyperkalemia. Resolved a single dose of potassium exchange resin. 5. Fluids, electrolytes, and nutrition. Carbohydrate controlled diet. 6. DVT prophylaxis. As per orthopedic surgery. 7. Plan. Continue current care. We will continue to follow the patient along with you. Thank you for the consult. The patient can be discharged home from medical standpoint once cleared by orthopedic surgery. Case discussed with Dr. Ford. Problems: Subjective 24 Hr Interval Summary Free Text/Dictation Patient remains afebrile. Exam/Review of Systems Vital Signs Vitals Vital Signs Date Time Temp Pulse Resp B/P Pulse Ox O2 Delivery O2 Flow Rate FiO2 12/23/16 08:03 97.7 72 22 145/64 96 12/22/16 02:34 Nasal Cannula 12/21/16 01:51 2.0 Intake and Output 12/22/16 12/22/16 12/23/16 15:00 23:00 07:00 Intake Total 2360 ml 750 ml Output Total 1200 ml 1300 ml Balance 1160 ml -550 ml Exam General: Adequately build 76 year-old female lying in bed in no apparent distress. HEENT: Normocephalic, atraumatic. Eyes: Anicteric sclerae, conjunctivae clear. ENT: Nasal septum midline, oral mucosa moist. Neck supple, no JVD noticed. Respiratory: Bilaterally clear breath sounds. No use of accessory muscles of respiration. No adventitious breath sounds. Cardiovascular: S1, S2 heard. No murmurs or gallops. Abdomen: Soft, nontender, and nondistended. Bowel sounds positive in all 4 quadrants. Genitourinary: Deferred. Extremities: No cyanosis, no clubbing. Right knee surgical dressing. Peripheral pulses palpable. Neurologic: Cranial nerves II through XII grossly intact. The patient is awake, alert, and oriented. Skin: Normal skin turgor. No skin rashes. Results Result Diagram: 12/23/16 0433 12/23/16 0436 Results 24 hrs Laboratory Tests Test 12/22/16 08:40 12/22/16 13:00 12/22/16 17:45 12/22/16 20:57 Bedside Glucose 133 73 109 138 Test 12/23/16 04:33 12/23/16 04:36 Hemoglobin 10.6 L Hematocrit 34.2 L Sodium Level 137 Potassium Level 4.2 Chloride Level 99 Carbon Dioxide Level 29 Anion Gap 13 Blood Urea Nitrogen 19 Creatinine 0.86 Glucose Level 90 Calcium Level 8.3 L Medications Medications Current Medications Lactated Ringer's (Lr) 1,000 ml @ 100 mls/hr Q10H IV ; Start 12/20/16 at 14:00 Miscellaneous Information 1 ea NOTE XX ; Start 12/20/16 at 14:00; Stop 12/24/16 at 13:59 Amlodipine Besylate (Norvasc) 10 mg DAILY PO Last administered on 12/22/16 09: 07; Admin Dose 10 MG; Start 12/21/16 at 09:00 Losartan Potassium 50 mg 50 mg DAILY PO Last administered on 12/21/16 08:42; Admin Dose 50 MG; Start 12/21/16 at 09:00; Status Future hold Lactated Ringer's (Lr) 1,000 ml @ 125 mls/hr Q8H IV Last administered on 05:52; Admin Dose 125 MLS/HR; Start 12/20/16 at 19:13 Tramadol HCl (Ultram) 50 mg Q6 PO Last administered on 12/23/16 02:09; Admin Dose 50 MG; Start 12/20/16 at 12:00; Stop 12/23/16 at 11:59 Hydromorphone HCl 1 mg 1 mg Q3H PRN IV PAIN LEVEL 8-10; Start 12/20/16 at 19:30 Cefazolin Sodium/ Dextrose (Ancef 2 Gm/50 ml (Pmx)) 50 ml @ 100 mls/hr Q8H IVPB Last administered on 12/23/16 05:48; Admin Dose 100 MLS/HR; Start at 21:30; Stop 12/23/16 at 13:59 Ondansetron HCl (Zofran Inj) 4 mg Q6H PRN IV NAUSEA AND/OR VOMITING; Start 02/26 at 19:30 Bisacodyl (Dulcolax Supp) 10 mg Q12H PRN [place] CONSTIPATION; Start 12/20/16 at 19: 30 Magnesium Hydroxide (Milk Of Mag) 30 ml BID PRN PO CONSTIPATION; Start at 19:30 Sodium Biphosphate/ Sodium Phosphate (Fleet Enema) 133 ml DAILY PRN [place] CONSTIPATION; Start 12/20/16 at 19:30 Docusate Sodium (Colace) 100 mg BID PO Last administered on 12/22/16 20:49; Admin Dose 100 MG; Start 12/20/16 at 21:00 Diphenhydramine HCl (Benadryl) 25 mg Q6H PRN PO PRURITUS; Start 12/20/16 at 19: 30 Acetaminophen/ Hydrocodone Bitart ([place] (7.5-325)) 1 tab Q4H PRN PO PAIN LEVEL 1-3 Last administered on 12/21/16 21:10; Admin Dose 1 TAB; Start at 19:30 Acetaminophen/ Hydrocodone Bitart ([place] (7.5-325)) 2 tab Q4H PRN PO PAIN LEVEL 4-7; Start 12/20/16 at 19:30 Aspirin (Ecotrin) 325 mg BID PO Last administered on 12/22/16 20:49; Admin Dose 325 MG; Start 12/21/16 at 09:00 Pantoprazole (Protonix Tab) 40 mg BID@,18 PO Last administered on 12/23/16 05:48; Admin Dose 40 MG; Start 12/21/16 at 06:00 Pregabalin (Lyrica) 50 mg BID PO Last administered on 12/22/16 22:12; Admin Dose 50 MG; Start 12/20/16 at 21:00 Diagnostic Test (Pha) (Accu-Chek) 1 ea 02 XX ; Start 12/21/16 at 02:00 Miscellaneous Information 1 ea NOTE XX ; Start 12/20/16 at 23:15 Glucose (Glutose) 15 gm Q15M PRN PO DECREASED GLUCOSE; Start 12/20/16 at 23:15 Glucose (Glutose) 22.5 gm Q15M PRN PO DECREASED GLUCOSE; Start 12/20/16 at 23: 15 Dextrose (D50w Syringe) 25 ml Q15M PRN IV DECREASED GLUCOSE; Start 12/20/16 at 23:15 Dextrose (D50w Syringe) 50 ml Q15M PRN IV DECREASED GLUCOSE; Start 12/20/16 at 23:15 Glucagon (Glucagen) 1 mg Q15M PRN IM DECREASED GLUCOSE; Start 12/20/16 at 23:15 Glucose (Glutose) 15 gm Q15M PRN BUCCAL DECREASED GLUCOSE; Start 12/20/16 at 23 :15 BRYSON BAR NP Dec 23, 2016 08:31
[2016-12-23] MEDS: AMLODIPINE 10 MG TAB PO SCH (09:03)
[2016-12-23] MEDS: ASPIRIN (EC) 325 MG TAB PO SCH (09:03)
[2016-12-23] MEDS: DOCUSATE SODIUM 100 MG CAP PO SCH (09:03)
[2016-12-23] MEDS: PREGABALIN 50 MG CAP PO SCH (09:03)
[2016-12-23] MEDS: LOSARTAN 50 MG TAB PO SCH (09:07)
--- NOTE | 2016-12-23 12:06 | PN ---
Date/Time of Note Date/Time of Note DATE: 12/23/16 TIME: 12:05 Assessment/Plan Lines/Catheters IV Catheter Type (from Nrsg): Peripheral IV Amin in Place (from Nrsg): No Assessment/Plan Assessment/Plan POD # 3. Stable. -D/C to home -Pain meds -Home PT -ASA/SCDs -F/u with me in 1 week Subjective 24 Hr Interval Summary Comfortable. Wants to go home. Exam/Review of Systems Vital Signs Vitals Vital Signs Date Time Temp Pulse Resp B/P Pulse Ox O2 Delivery O2 Flow Rate FiO2 12/23/16 08:03 97.7 72 22 145/64 96 12/22/16 02:34 Nasal Cannula 12/21/16 01:51 2.0 Intake and Output 12/22/16 12/22/16 12/23/16 15:00 23:00 07:00 Intake Total 2360 ml 750 ml Output Total 1200 ml 1300 ml Balance 1160 ml -550 ml Exam Free Text/Dictation Dressing dry Incision clean, dry, and intact without redness or drainage 5/5 Tibialis Anterior, EHL, Gastroc Soleus, Peroneals Normal sensation Palpable DP/PT, CR < 2 Sec No distal edema Results Result Diagram: 12/23/16 0433 12/23/16 0436 KANCHAN QUINTANILLA MD Dec 23, 2016 12:06
[2016-12-23] MEDS: HYDROCODONE/APAP (7.5/325) TAB PO PRN (13:39)
--- NOTE | 2016-12-24 09:01 | DS ---
Date/Time of Note Date/Time of Note DATE: 12/24/16 TIME: 08:59 Discharge Summary Admission/Discharge Info Admit Date/Time Dec 20, 2016 at 13:36 Discharge Date/Time Dec 23, 2016 at 14:15 Discharge Diagnosis s/p right total knee arthroplasty Patient Condition: Good Procedures Right total knee arthroplasty Hospital Course This is a 76-year-old female, who presented to the clinic complaining of right knee pain. X-rays demonstrated advanced osteoarthritis of the right knee, notes that she would benefit from a right total knee arthroplasty. On 12/20/2016 , the patient was admitted and taken to the operating room, where she underwent a right total knee arthroplasty. There were no intraoperative complications. The patient tolerated procedure well. She was taken to recovery home in stable condition. Pain was well-controlled oral pain medication. She was started on aspirin and SCDs for DVT prophylaxis. She remained hemodynamically stable and neurovascularly intact throughout her hospital stay. She began physical therapy on postoperative day 1, continued to make a progress. Ultimately she was deemed stable for discharge home on postoperative day 3. Prior to discharge , the incision was inspected and noted to be clean, dry, and intact. Dressing changes were done prior to patient going home. DISCHARGE INSTRUCTIONS: The patient be discharged home in stable condition. She is to resume her normal diet. She is weightbearing as tolerated on right lower extremity. She will begin physical therapy with home health. She was discharged home with a medication noted, and is to resume all of her normal home medication. She is to call the office or go to the emergency room for any concerns including increased redness, swelling, drainage, fever, or any concerns regarding the operation or site of incision. Home Meds Active Scripts Hydrocodone/Acetaminophen (Hydrocodon-Acetaminoph 7.5-325) 1 Each Tablet, 2 TAB PO Q4H Y for PAIN LEVEL 4-7 for 30 Days, #60 TAB Prov:ESTEBAN KOWALSKI PA-C 12/21/16 Pantoprazole* (Pantoprazole*) 40 Mg Tablet.dr, 40 MG PO BID@06,18 for 40 Days, # 40 Prov:ESTEBAN KOWALSKI PA-C 12/21/16 Tramadol HCl (Tramadol HCl) 50 Mg Tablet, 50 MG PO Q6 for 30 Days, #60 TAB Prov:ESTEBAN KOWALSKI PA-C 12/21/16 Aspirin (Aspir-Ayleen) 325 Mg Tablet., 325 MG PO BID for 40 Days, #80 Prov:ESTEBAN KOWALSKI PA-C 12/21/16 Reported Medications Amlodipine Besylate* (Amlodipine Besylate*) 10 Mg Tablet, 10 MG PO DAILY, #30 TAB 12/20/16 Losartan Potassium* (Losartan Potassium*) 50 Mg Tablet, 50 MG PO DAILY, TAB 12/20/16 Follow-up Plan Follow-up in the office on 12/31/2016 Primary Care Provider Lance Elmore MD Pending Labs Laboratory Tests Test 12/23/16 12:37 Bedside Glucose 84mg/dL (70-220) ESTEBAN KOWALSKI PA-C Dec 24, 2016 09:01
== END 2016-12-23 14:15 | disposition home health service (06) | DRG 470 ==
LOC: REC 13:36 → MS1 22:30
PROVIDERS: ADMIT Orthopaedic Surgery; ATTEND Orthopaedic Surgery
PROC: 0SRC0J9 Replacement of Right Knee Joint with Synthetic Substitute, Cemented, Open Approach (ICD-10-PCS; principal; 2016-12-20 16:00)
DX: M17.11 Unilateral primary osteoarthritis, right knee (principal); E87.5 Hyperkalemia; E11.9 Type 2 diabetes mellitus without complications; I10 Essential (primary) hypertension; H40.9 Unspecified glaucoma; Z79.4 Long term (current) use of insulin
CPT/HCPCS: 73560; 73562; 80048; 81001; 82962; 83036; 83735; 84132; 85014; 85018; 86850; 86900; 86901; 86920; 87070; 87075; 87081; 87086; 88304; 88311; 97116; 97162; 97166; 97530; C1776; C9290; J0171; J0690; J0697; J0735; J1100; J1815; J1885; J2250; J2274; J2405; J2710; J3010; J3370; J7120

== ENCOUNTER → 2016-12-31 | Outpatient (CLI) | payer OTHER ==
[~2016-12-31] MED LIST changes: +ASPI325T32 PO; +HYDR-3605 PO; +PANT40TA4 PO; +TRAM50TA2 PO
--- NOTE | 2016-12-31 16:24 | PN ---
Date/Time of Note Date/Time of Note DATE: 12/31/16 TIME: 16:21 Outpatient Progress Note HPI The patient presents today for her first postoperative evaluation. 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 She is doing well overall. She is having some pain but it is controlled with pain medication. She is currently living at home with her son in the [facility]. She denies any fevers or chills. She is taking aspirin twice daily for DVT per [facility]. There have been some delays in getting her home health PT arranged given where she is regionally located. She is progressing and doing physical therapy and walking on her own. She presents today for her first postoperative evaluation. Physical Exam On exam today, she is alert and oriented 4, and in no acute distress. She is ambulating with a front wheel walker. Exam of the incision demonstrates it to be clean, dry, and intact. [place] are in place. There is no erythema, warmth , pus, or drainage noted. Range of motion is 0-80. Varus and valgus forces are stable. There is no significant soft tissue swelling. Homans sign is negative. Compartments are soft. She is neurovascular intact distally. Imaging: X-rays of the right knee were obtained today and reviewed by me. They demonstrate a normal knee alignment. There are no fractures or dislocations identified. Allergies Coded Allergies: No Known Drug Allergies (Unverified Allergy, Unknown, 12/20/16) Assessment/Plan Assessment: 10 days status post right total knee arthroplasty Plan: The levi were removed today, and Steri-Strips were applied. She is to continue doing home exercises on her own and work with home health physical therapy once it is arranged and resolved. Additionally she is to continue aspirin 325 mg twice daily for DVT prophylaxis. She is to continue taking [place] and tramadol as needed for pain. We will see her back in 4 weeks for repeat evaluation. If she has any concerns, she will call the office in the meantime. Medications Home Meds Active Scripts Hydrocodone/Acetaminophen (Hydrocodon-Acetaminoph 7.5-325) 1 Each Tablet, 2 TAB PO Q4H Y for PAIN LEVEL 4-7 for 30 Days, #60 TAB Prov:ESTEBAN KOWALSKI PA-C 12/21/16 Pantoprazole* (Pantoprazole*) 40 Mg Tablet., 40 MG PO BID@06,18 for 40 Days, # 40 Prov:ESTEBAN KOWALSKI PA-C 12/21/16 Tramadol HCl (Tramadol HCl) 50 Mg Tablet, 50 MG PO Q6 for 30 Days, #60 TAB Prov:ESTEBAN KOWALSKI PA-C 12/21/16 Aspirin (Aspir-Ayleen) 325 Mg Tablet.dr, 325 MG PO BID for 40 Days, #80 Prov:ESTEBAN KOWALSKI PA-C 12/21/16 Reported Medications Amlodipine Besylate* (Amlodipine Besylate*) 10 Mg Tablet, 10 MG PO DAILY, #30 TAB 12/20/16 Losartan Potassium* (Losartan Potassium*) 50 Mg Tablet, 50 MG PO DAILY, TAB 12/20/16 ESTEBAN KOWALSKI PA-C Dec 31, 2016 16:24
--- NOTE | 2016-12-31 17:14 | RADRPT ---
PROCEDURE: Right knee radiographs. CLINICAL INDICATION: Right knee pain. Postop. TECHNIQUE: Two views. Frontal and lateral. COMPARISON: 12/20/2016. FINDINGS: There is no fracture or dislocation. Anterior skin levi and surgical drain have been removed. There is a total right knee arthroplasty which appears satisfactory. There is no lytic or blastic lesion. IMPRESSION: 1. Satisfactory postoperative appearance of the right knee. RPTAT: QQ .Matthew Shrestha MD, MD Date Time Electronically viewed and signed by .Matthew Shrestha MD, on 12/31/2016 17:14 .R/
== END | disposition home or self-care (01) ==
LOC: HKI 16:06
PROVIDERS: ATTEND Orthopaedic Surgery
DX: Z47.1 Aftercare following joint replacement surgery (principal); Z96.651 Presence of right artificial knee joint